=== PATIENT | male | born 2000 | race Two or more races ===

== ENCOUNTER 2023-03-18 09:17 | Emergency (ER) | payer OTHER ==
[~2023-03-18] VITALS: Ht 162.6 cm; Wt 57.0 kg
[2023-03-18 10:04] VITALS: O2SAT 99
[2023-03-18 10:09] VITALS: BP 119/77; PULSE 76; RESP 16; TEMP 98.2; O2SAT 100
[2023-03-18] MEDS ORDERED: IBUP-1454 PO (11:04)
[2023-03-18] MEDS ORDERED: ACE3T PO (11:17)
== END 2023-03-18 11:22 | disposition home or self-care (01) ==
LOC: EDBD 09:17 → ER 09:17
DX: S16.1XXA Strain of muscle, fascia and tendon at neck level, initial encounter (principal); S90.01XA Contusion of right ankle, initial encounter; S80.11XA Contusion of right lower leg, initial encounter; V43.52XA Car driver injured in collision with other type car in traffic accident, initial encounter; Y93.89 Activity, other specified; Y92.410 Unspecified street and highway as the place of occurrence of the external cause; Y99.8 Other external cause status
CPT/HCPCS: 73000; 73030; 73130; 73562